=== PATIENT | female | born 1995 | race Caucasian/White ===

== ENCOUNTER 2019-02-15 20:13 | Emergency (ER) | payer OTHER ==
[~2019-02-15] VITALS: Ht 157.5 cm; Wt 60.1 kg
[~2019-02-15 20:13] MED LIST: ACET500C5 PO; BUTA1CAP38 PO; CEPH-443 PO; IBUP800T48 PO
[2019-02-15 20:21] VITALS: Ht 157.5 cm; Wt 60.1 kg
[2019-02-15] MEDS ORDERED: SODIUM CHLORIDE 0.9% 1L BAG IV* STA (20:29)
[2019-02-15] MEDS ORDERED: ACETAMINOPHEN 325 MG TAB PO STA (20:29)
[2019-02-15] MEDS ORDERED: IBUPROFEN 800 MG TAB PO ONE (20:30)
[2019-02-15] MEDS ORDERED: CEFTRIAXONE 1 GM/50 ML (PMX) 50 ML IVPB ONE (21:30)
[2019-02-15 23:00] VITALS: BP 92/55; PULSE 84; RESP 21
--- NOTE | 2019-02-15 23:18 | ERD ---
ER Documentation Chief Complaint Chief Complaint FEVER WITH ABD PAIN WITH N/V X3DAYS HPI This Is a 20-year-old female with no past medical history the presents to the emergency department complaining of 3 days of a tactile fever shaking and chills. She states that he has been having bilateral flank pain. She has felt nauseous and had one episode of nonbloody nonbilious emesis. She said a decreased appetite. She denies any recent travel. She does complain of mild frequency and urgency with no dysuria. She is sexually active with one partner and denies any abnormal urethral discharge or STD risk factors. She denies any chest pain. No shortness of breath no recent travel. She denies a headache or neck pain. The patient is on Depo-Provera but otherwise takes no other medications ROS All systems reviewed and are negative except as per history of present illness. Medications Home Meds Active Scripts Cephalexin* (Keflex*) 500 Mg Capsule, 500 MG PO QID for 10 Days, CAP Prov:CY TORO MD 02/15/19 Acetaminophen* (Tylophen*) 500 Mg Capsule, 2 CAP PO Q8H PRN for PAIN AND OR ELEVATED TEMP, #20 CAP Prov:CY TORO MD 02/15/19 Ibuprofen* (Motrin*) 800 Mg Tab, 800 MG PO Q6H PRN for PAIN AND OR ELEVATED TEM P, #30 TAB Prov:CY TORO MD 02/15/19 Allergies Allergies: Coded Allergies: No Known Allergy (Unverified , 02/15/19) PMhx/Soc Medical and Surgical Hx: pt denies Medical Hx, pt denies Surgical Hx Hx Alcohol Use: No Hx Substance Use: No Hx Tobacco Use: No Smoking Status: Never smoker Physical Exam Vitals Vital Signs Date Temp Pulse Resp B/P (MAP) Pulse Ox O2 O2 Flow FiO2 Time Delivery Rate 02/15/19 98.6 84 21 92/55 (67) 98 Room Air 23:00 02/15/19 99.5 98 16 102/54 100 Room Air 22:08 (70) 02/15/19 102.4 106 16 103/72 100 Room Air 21:19 (82) 02/15/19 Nasal 20:36 Cannula 02/15/19 103.1 143 19 116/65 98 20:21 (82) Physical Exam Constitutional:Well-developed. Well-nourished. HEENT:Normocephalic. Atraumatic.Pupils were equal round reactive to light. Moist mucous membranes.No tonsillar exudates. Neck: No nuchal rigidity. No lymphadenopathy. No posterior cervical spine tenderness or step-offs. Respiratory: Not using accessory muscles of respiration.Lungs were clear to auscultation bilaterally. No rhonchi. No rales. No wheezing. Cardiovascular: Tachycardic with regular rhythm.No murmurs. No rubs were appreciated.S1, S2 normal. Distal pulses are palpable 2+ bilaterally. GI: Abdomen was soft. Bilateral flank tenderness. Non Distended. No pulsatile abdominal masses or bruits. No rebound. No guarding. Bowel sounds were present and normal. Muscle skeletal: Full range of motion of both the upper and lower extremities bilaterally.Normal muscle tone.No assymetrical calf tenderness or swelling. Skin: No petechia, no purpura. No lesions on the palms or the soles of the feet. No maculopapular rash. NEURO: Patient was alert, awake, orientated x3.No facial droop. Gait observed and normal with no ataxia.Speech had regular rate and rhythm. No focal neurological deficits. Result Diagram: 02/15/19203402/15/192034 Results 24 hrs Laboratory Tests Test 02/15/19 20:30 02/15/19 20:35 02/15/19 20:46 Urine Color YELLOW Urine Clarity CLOUDY Urine pH 5.0 Urine Specific [place] 1.012 Urine Ketones NEGATIVE mg/dL Urine Nitrite POSITIVE mg/dL Urine Bilirubin NEGATIVE mg/dL Urine Urobilinogen NEGATIVE mg/dL Urine Leukocyte Esterase 1+ Yvrose/ul Urine Microscopic RBC 7 /HPF Urine Microscopic WBC 163 /HPF Urine Squamous Epithelial Cells FEW /HPF Urine Bacteria FEW /HPF Urine Hemoglobin 3+ mg/dL Urine Glucose NEGATIVE mg/dL Urine Total Protein 2+ mg/dl White Blood Count 10.3 10^3/ul Red Blood Count 4.28 10^6/ul Hemoglobin 13.3 g/dl Hematocrit 39.3 % Mean Corpuscular Volume 91.8 fl Mean Corpuscular Hemoglobin 31.1 pg Mean Corpuscular 33.8 g/dl Hemoglobin Concent Red Cell Distribution Width 12.7 % Platelet Count 134 10^3/UL Mean Platelet Volume 12.1 fl Immature Granulocytes % 0.200 % Neutrophils % 81.3 % Lymphocytes % 6.7 % Monocytes % 11.4 % Eosinophils % 0.1 % Basophils % 0.3 % Nucleated Red Blood Cells % 0.0 /100WBC Immature Granulocytes # 0.020 10^3/ul Neutrophils # 8.4 10^3/ul Lymphocytes # 0.7 10^3/ul Monocytes # 1.2 10^3/ul Eosinophils # 0.0 10^3/ul Basophils # 0.0 10^3/ul Nucleated Red Blood Cells # 0.0 10^3/ul Prothrombin Time 15.4 Sec Prothrombin Time Ratio 1.2 INR International 1.21 Normalized Ratio Activated Partial Thromboplast 31.5 Sec Time Sodium Level 138 mmol/L Potassium Level 3.7 mmol/L Chloride Level 103 mmol/L Carbon Dioxide Level 25 mmol/L Anion Gap 10 Blood Urea Nitrogen 8 mg/dl Creatinine 0.92 mg/dl Est Glomerular Filtrat > 60 mL/min Rate mL/min Glucose Level 123 mg/dl POC Venous Lactate 1.4 mmol/L Calcium Level 8.9 mg/dl Total Bilirubin 1.1 mg/dl Direct Bilirubin 0.00 mg/dl Indirect Bilirubin 1.1 mg/dl Aspartate Amino 20 IU/L Transf (AST/SGOT) Alanine 21 IU/L Aminotransferase (ALT/SGPT) Alkaline Phosphatase 59 IU/L Troponin I < 0.012 ng/ml Total Protein 8.1 g/dl Albumin 4.4 g/dl Globulin 3.70 g/dl Albumin/Globulin Ratio 1.18 Amylase Level 66 U/L Lipase 29 U/L POC Beta HCG, Qualitative NEGATIVE Current Medications Medications Dose Sig/Carlito Start Time Status Last (Trade) Ordered Route PRN Stop Time Admin Dose Reason Admin Sodium 1,800 ml BOLUS OVER 2 02/15/19 DC 02/15/19 Chloride HOURS STAT 20:29 20:42 (NS) IV* 02/15/19 20:37 650 mg ONCE STAT 02/15/19 DC 02/15/19 Acetaminophen PO 20:29 20:42 (Tylenol 02/15/19 20:37 Tab) Ibuprofen 800 mg ONCE ONCE 02/15/19 DC 02/15/19 (Motrin) PO 20:30 20:42 02/15/19 20:37 Ceftriaxone 50 ml @ ONCE ONCE 02/15/19 DC 02/15/19 Sodium 100 mls/hr IVPB 21:30 21:34 02/15/19 21:59 Procedures/MDM 23-year-old female that presented to the emergency department with Sirs criteria. The patient was called for a code sepsis however the lactic acid was normal and therefore at this time code sepsis was canceled. The patient was placed in a bus monitor continuous pulse oximetry and IV access was established by nursing staff. The patient was given a 30 cc/kg bolus of normal saline. The patient no leukocytosis or severe electrolyte abnormalities. Physical exam findings did not suggest meningitis. The patient did have a urinary tract infection consistent with pyelonephritis. Chest radiograph showed no evidence of pneumonia. The patient was given IV ceftriaxone in the emergency department. Fever was resolved with antipyretics. The patient was able to tolerate oral intake. 12 Lead EKG tracing ordered and reviewed by myself showed: Sinus tachycardia 113 bpm and no arrhythmia. HI interval normal. QRS duration normal. No ST segment elevation No ST segment depression. No changes consistent with acute ischemia. Critical Care: Time: 40 minutes Treatments/Evaluations: Close monitoring and treatment of unstable vital signs, cardiorespiratory, and neurologic status, while maintaining tight balance of fluid, respiratory, and cardiac interventions. Time does not include performing any of the above billable procedures. Departure Diagnosis: Primary Impression: Pyelonephritis Condition: Fair Patient Instructions: Pyelonephritis, Female (Adult) CY TORO MD Feb 15, 2019 23:18
== END 2019-02-15 23:09 | disposition home or self-care (01) ==
LOC: E/R 20:13
DX: N12 Tubulo-interstitial nephritis, not specified as acute or chronic (principal)
CPT/HCPCS: 36415; 71045; 80053; 81001; 81025; 82150; 83605; 83690; 84484; 85025; 85610; 85730; 87040; 87086; 93005; 96374; J0696; J7030; Z7502; Z7610

== ENCOUNTER 2019-02-18 21:40 | Inpatient (IN) | payer OTHER ==
[~2019-02-18] VITALS: Ht 160 cm; Wt 64.0 kg
[2019-02-18] MEDS ORDERED: SODIUM CHLORIDE 0.9% 1L BAG IV* STA (22:27)
[2019-02-18] MEDS ORDERED: ACETAMINOPHEN 325 MG TAB PO STA (22:27)
[2019-02-19] MEDS ORDERED: KETOROLAC 30 MG INJ IV STA (02:51)
--- NOTE | 2019-02-19 03:56 | ERD ---
ER Documentation Chief Complaint Chief Complaint low grade fever, TATUM, neck pain/stiffness x2 days, on abx for pyelo HPI This is a very pleasant 23-year-old female with low-grade fever headache body aches and abdominal pain and flank pain for the past 2 days. Recently diagnosed with urinary tract infection ROS All systems reviewed and are negative except as per history of present illness. Medications Home Meds Active Scripts Cephalexin* (Keflex*) 500 Mg Capsule, 500 MG PO QID for 10 Days, CAP Prov:CY TORO MD 02/15/19 Acetaminophen* (Tylophen*) 500 Mg Capsule, 2 CAP PO Q8H PRN for PAIN AND OR ELEVATED TEMP, #20 CAP Prov:CY TORO MD 02/15/19 Ibuprofen* (Motrin*) 800 Mg Tab, 800 MG PO Q6H PRN for PAIN AND OR ELEVATED TEMP, #30 TAB Prov:CY TORO MD 02/15/19 Allergies Allergies: Coded Allergies: No Known Allergy (Unverified , 02/19/19) PMhx/Soc Medical and Surgical Hx: pt denies Medical Hx History of Surgery: Yes (ANKLE SURGERY) Anesthesia Reaction: No Hx Alcohol Use: No Hx Substance Use: No Hx Tobacco Use: No Smoking Status: Never smoker Physical Exam Vitals Vital Signs Date Temp Pulse Resp B/P (MAP) Pulse Ox O2 O2 Flow FiO2 Time Delivery Rate 02/19/19 61 18 109/66 100 Room Air 02:00 (80) 02/19/19 76 21 116/72 100 Room Air 00:00 (87) 02/18/19 88 18 113/70 100 Room Air 23:30 (84) 02/18/19 100.5 22:40 02/18/19 100.5 85 16 121/78 99 21:43 (92) Physical Exam Const: No acute distress Head: Atraumatic Eyes: Normal Conjunctiva ENT: Normal External Ears, Nose and Mouth. Neck: Full range of motion. No meningismus. Resp: Clear to auscultation bilaterally Cardio: Regular rate and rhythm, no murmurs Abd: Soft, non tender, non distended. Normal bowel sounds Skin: No petechiae or rashes Back: No midline or flank tenderness Ext: No cyanosis, or edema Neur: Awake and alert Psych: Normal Mood and Affect Result Diagram: 02/18/19220102/18/192201 Results 24 hrs Laboratory Tests Test 02/18/19 22:02 02/18/19 22:54 02/19/19 01:29 02/19/19 03:02 White Blood Count 6.2 10^3/ul Red Blood Count 4.07 10^6/ul Hemoglobin 12.3 g/dl Hematocrit 37.1 % Mean Corpuscular 91.2 fl Volume Mean Corpuscular 30.2 pg Hemoglobin Mean Corpuscular 33.2 g/dl Hemoglobin Concen t Red Cell 12.8 % Distribution Width Platelet Count 199 10^3/UL Mean Platelet 11.9 fl Volume Immature 0.500 % Granulocytes % Neutrophils % % Segmented 54 % Neutrophils % (Manual) Band Neutrophils 7 % % (Manual) Lymphocytes % % Lymphocytes % 25 % (Manual) Reactive 2 % Lymphocytes % (Manual) Monocytes % % Monocytes % 11 % (Manual) Eosinophils % % Eosinophils % 1 % (Manual) Basophils % % Nucleated Red 0.0 /100WBC Blood Cells % Immature 0.030 10^3/ul Granulocytes # Neutrophils # 10^3/ul Neutrophils # 3.4 10^3/ul (Manual) Band Neutrophils 0.4 10^3/ul # Lymphocytes 1.5 10^3/ul (Manual) Lymphocytes # 10^3/ul Reactive 0.1 10^3/ul Lymphocytes # Monocytes # 10^3/ul Monocytes # 0.6 10^3/ul (Manual) Eosinophils # 10^3/ul Basophils # 10^3/ul Nucleated Red 10^3/ul Blood Cells # Platelet Estimate NORMAL Giant Platelets 1 % Polychromasia 2+ Anisocytosis 1+ Microcytosis 1+ Prothrombin Time 13.1 Sec Prothrombin Time 1.0 Ratio INR International 0.98 Normalized Ratio Activated 31.2 Sec Partial Thrombopl ast Time Sodium Level 142 mmol/L Potassium Level 3.9 mmol/L Chloride Level 101 mmol/L Carbon Dioxide 31 mmol/L Level Anion Gap 10 Blood Urea 17 mg/dl Nitrogen Creatinine 0.90 mg/dl Est Glomerular > 60 mL/min Filtrat Rate mL/min Glucose Level 126 mg/dl Calcium Level 9.3 mg/dl Total Bilirubin 0.2 mg/dl Direct Bilirubin 0.00 mg/dl Indirect 0.2 mg/dl Bilirubin Aspartate Amino 27 IU/L Transf (AST/SGOT) Alanine 34 IU/L Aminotransferase (ALT/SGPT) Alkaline 62 IU/L Phosphatase Troponin I < 0.012 ng/ml Total Protein 7.5 g/dl Albumin 3.8 g/dl Globulin 3.70 g/dl Albumin/Globulin 1.02 Ratio Urine Color COLORLESS Urine Clarity CLEAR Urine pH 7.0 Urine Specific 1.005 [place] Urine Ketones NEGATIVE mg/dL Urine Nitrite NEGATIVE mg/dL Urine Bilirubin NEGATIVE mg/dL Urine NEGATIVE mg/dL Urobilinogen Urine Leukocyte NEGATIVE Yvrose/ul Esterase Urine Microscopic 3 /HPF RBC Urine Microscopic 1 /HPF WBC Urine Hemoglobin 2+ mg/dL Urine Glucose NEGATIVE mg/dL Urine Total NEGATIVE mg/dl Protein Lactic Acid Level 0.8 mmol/L 0.8 mmol/L Current Medications Medications Dose Sig/Carlito Start Time Status Last (Trade) Ordered Route PRN Stop Time Admin Dose Reason Admin Sodium 1,850 ml BOLUS OVER 2 02/18/19 DC 02/18/19 Chloride HOURS STAT 22:27 22:40 (NS) IV* 02/18/19 22:28 650 mg ONCE STAT 02/18/19 DC 02/18/19 Acetaminophen PO 22:27 22:40 (Tylenol 02/18/19 22:28 Tab) Ketorolac 30 mg ONCE STAT 02/19/19 DC 02/19/19 Tromethamine IV 02:51 02:56 (Toradol) 02/19/19 02:52 Vancomycin 250 ml @ ONCE ONCE 02/19/19 HCl 125 mls/hr IVPB 04:00 02/19/19 05:59 150 ml @ ONCE ONCE 02/19/19 Levofloxacin/ 100 mls/hr IVPB 04:00 Dextrose 02/19/19 05:29 Procedures/MDM This is a very pleasant 23-year-old female comes in with complaints of fevers chills and body aches. Reviewing her medical record, patient had a positive blood culture. This is likely source of her fevers and chills. She is been started on broad-spectrum antibiotics that tend to cover her sensitivities. Patient will be admitted for further evaluation and management. EKG: Rate/Rhythm: [Normal Sinus Rhythm] QRS, ST, T-waves: [No changes consistent w/ acute ischemia] Impression: [No evidence of ischemia or arrhythmia] Chest X-ray 1V Interpreted by me: Soft Tissue: No acute abnormalities Bones: No acute abnormalities Mediastinum/Cardiac Silhouette/Lungs: [No acute abnormalities] Departure Diagnosis: Primary Impression: Pyelonephritis Condition: Serious LUCIEN WILKS Feb 19, 2019 03:56
[2019-02-19] MEDS ORDERED: LEVOFLOXACIN 750MG/D5W (PMX) 150 ML IVPB ONE (04:00)
[2019-02-19] MEDS ORDERED: VANCOMYCIN 1 GM (PMX) 250 ML IVPB ONE (04:00)
[2019-02-19] MEDS ORDERED: ACETAMINOPHEN 325 MG TAB PO PRN (05:00)
[2019-02-19] MEDS ORDERED: ONDANSETRON 4 MG INJ IV PRN ×2 (05:00→06:00)
--- NOTE | 2019-02-19 05:53 | HP ---
Date/Time of Note Date/Time of Note DATE: 02/19/19 TIME: 05:49 Assessment/Plan VTE Prophylaxis SCD applied (from Nsg): Yes Pharmacological prophylaxis: NA/contraindicated Pharm contraindication: other (Awaiting lumbar puncture) Lines/Catheters IV Catheter Type (from Nrsg): Saline Lock Assessment/Plan Assessment/Plan 1. Headache and neck pain: Rule out meningitis -Patient also presented with temperature of 100.5 -She was diagnosed with pyelonephritis here 4 days ago and has been on antibiotic -will obtain head CT -LP to rule out meningitis -IV antibiotic -Patient with E. coli bacteremia, with blood draw and on 02/15/2019 2. Pyelonephritis: Diagnosed 4 days ago here at [facility] -UA now negative -Continue IV antibiotic, IV fluid -Follow-up culture results 3. E. coli bacteremia: On lab drawn 02/15 -IV antibiotic -Repeat blood culture at a later time Result Diagram: 02/18/19 2202 02/18/19 2202 Results 24hrs Laboratory Tests Test 02/18/19 22:02 02/18/19 22:54 02/19/19 01:29 02/19/19 03:02 White Blood Count 6.2 # Red Blood Count 4.07 L Hemoglobin 12.3 Hematocrit 37.1 Mean Corpuscular 91.2 Volume Mean Corpuscular 30.2 Hemoglobin Mean Corpuscular 33.2 Hemoglobin Concent Red Cell 12.8 Distribution Width Platelet Count 199 # Mean Platelet Volume 11.9 H Immature 0.500 H Granulocytes % Neutrophils % Segmented 54 Neutrophils % (Manual) Band Neutrophils % 7 H (Manual) Lymphocytes % Lymphocytes % 25 (Manual) Reactive Lymphocytes 2 H % (Manual) Monocytes % Monocytes % (Manual) 11 Eosinophils % Eosinophils % 1 (Manual) Basophils % Nucleated Red Blood 0.0 Cells % Immature 0.030 Granulocytes # Neutrophils # Neutrophils # 3.4 (Manual) Band Neutrophils # 0.4 Lymphocytes (Manual) 1.5 Lymphocytes # Reactive Lymphocytes 0.1 H # Monocytes # Monocytes # (Manual) 0.6 Eosinophils # Basophils # Nucleated Red Blood Cells # Platelet Estimate NORMAL Giant Platelets 1 H Polychromasia 2+ Anisocytosis 1+ Microcytosis 1+ Prothrombin Time 13.1 Prothrombin Time 1.0 Ratio INR International 0.98 Normalized Ratio Activated 31.2 Partial Thromboplast Time Sodium Level 142 Potassium Level 3.9 Chloride Level 101 Carbon Dioxide Level 31 Anion Gap 10 Blood Urea Nitrogen 17 Creatinine 0.90 Est Glomerular > 60 Filtrat Rate mL/min Glucose Level 126 Calcium Level 9.3 Total Bilirubin 0.2 Direct Bilirubin 0.00 Indirect Bilirubin 0.2 Aspartate Amino 27 Transf (AST/SGOT) Alanine 34 Aminotransferase (AL T/SGPT) Alkaline Phosphatase 62 Troponin I < 0.012 Total Protein 7.5 Albumin 3.8 Globulin 3.70 H Albumin/Globulin 1.02 Ratio Urine Color COLORLESS Urine Clarity CLEAR Urine pH 7.0 Urine Specific 1.005 [place] Urine Ketones NEGATIVE Urine Nitrite NEGATIVE Urine Bilirubin NEGATIVE Urine Urobilinogen NEGATIVE Urine Leukocyte NEGATIVE Esterase Urine Microscopic 3 RBC Urine Microscopic 1 WBC Urine Hemoglobin 2+ H Urine Glucose NEGATIVE Urine Total Protein NEGATIVE Lactic Acid Level 0.8 0.8 HPI/ROS Admit Date/Time Admit Date/Time Hx of Present Illness Patient is a 23-year-old female with no significant past medical history who presents the ER complaining of fever, headache, neck pain. She was seen in our ER 4 days ago for fever/chills and bilateral flank pain. At that time UA was positive. She was diagnosed with pyelonephritis and was discharged with antibiotic. She said for the past 3 days or so, she has been having headache mostly located in the frontal/forehead area but somehow diffuse. Also reported neck pain and stiffness. She said moving her head from side to side had been difficult. When she presented to the ER this time, she had a temperature of 100.5. UA negative. Basic labs within acceptable range. CT abdomen/pelvis shows left adnexal teratoma measuring 4.2 x 3.3 cm. Blood culture that was drawn 4 days ago shows E. coli, resistant to Bactrim. PMH/Family/Social Past Medical History Medical History: other (See HPI) Medications Current Medications Vancomycin HCl 250 ml @ 125 mls/hr ONCE ONCE IVPB Last administered on 02/19/19at 05:30; Admin Dose 125 MLS/HR; Start 02/19/19 at 04:00; Stop 02/19/19 at 05:59 Ondansetron HCl (Zofran Inj) 4 mg BRIDGE ORDER PRN IV NAUSEA/VOMITING; Start at 05:00; Stop 02/20/19 at 04:59 Acetaminophen (Tylenol Tab) 650 mg ER BRIDGE PRN PO .MILD PAIN 1-3 OR TEMP; Start 02/19/19 at 05:00; Stop 02/20/19 at 04:59 Coded Allergies: No Known Allergy (Unverified , 02/19/19) Past Surgical History Past Surgical Hx: other (See HPI) Family History Significant Family History: no pertinent family hx Social History Alcohol Use: none Smoking Status: Never smoker Drug Use: none Exam/Review of Systems Vital Signs Vitals Vital Signs Date Temp Pulse Resp B/P (MAP) Pulse Ox O2 O2 Flow FiO2 Time Delivery Rate 02/19/19 62 20 117/62 100 Room Air 05:30 (80) 02/18/19 100.5 22:40 Exam Constitutional: alert, oriented, well developed Head: normocephalic, atraumatic Eyes: EOMI, PERRL Respiratory: clear to auscultation, normal air movement Cardiovascular: regular rate and rhythm, nl pulses Gastrointestinal: soft, non-tender Extremities: normal pulses LUCIEN ROCHA MD Feb 19, 2019 05:53
[2019-02-19] MEDS ORDERED: VANCOMYCIN IV PER PHARMACY XX SCH (06:00)
[2019-02-19] MEDS ORDERED: NACL 0.9% 3 ML SYG IV SCH (06:00)
[2019-02-19] MEDS ORDERED: ALBUTEROL/IPRATROPIUM (NEB) 3 ML AMP HHN PRN (06:00)
[2019-02-19 07:44] VITALS: BP 97/58; PULSE 65; RESP 16
[2019-02-19] MEDS ORDERED: CEFTRIAXONE 1 GM/50 ML (PMX) 50 ML IVPB SCH ×2 (09:00→13:00)
[2019-02-19] MEDS: SOD CHLORIDE 0.9% 1,000 ML IV SCH ×3 (09:35→21:15)
[2019-02-19 10:01] VITALS: Ht 160 cm; Wt 64.0 kg
[2019-02-19 10:12] VITALS: BP 99/67; PULSE 74; RESP 21
[2019-02-19] MEDS: ACETAMINOPHEN 325 MG TAB PO PRN ×2 (10:22→22:46)
[2019-02-19] MEDS ORDERED: LIDOCAINE 1% (MPF) 5 ML VIAL ONE (11:56)
--- NOTE | 2019-02-19 12:17 | PN ---
Date/Time of Note Date/Time of Note DATE: 02/19/19 TIME: 12:15 Assessment/Plan VTE Prophylaxis Risk score (from Ns)>0 risk: 0 SCD applied (from [facility] [place]): Yes Pharmacological prophylaxis: NA/contraindicated Pharm contraindication: low risk/ambulating Lines/Catheters IV Catheter Type (from [facility]): Peripheral IV Assessment/Plan Hospital Course 1. Headache and neck pain: Rule out meningitis -Patient also presented with temperature of 100.5 -She was diagnosed with pyelonephritis here 4 days ago and has been on antibiotic -CT head is normal -LP to rule out meningitis -IV antibiotic -Patient with E. coli bacteremia, with blood draw and on 02/15/2019 -Neurology and ID consultations obtained 2. Pyelonephritis: Diagnosed 4 days ago here at [facility] -UA now negative -Continue IV antibiotic, IV fluid -Follow-up culture results 3. E. coli bacteremia: On lab drawn 02/15 -IV antibiotic -Repeat blood culture per ID Prophylaxis: SCDs DC planning: Not stable DC Result Diagram: 02/18/192 02/18/192 Results 24hrs Laboratory Tests Test 02/18/19 22:02 02/18/19 22:54 02/19/19 01:29 02/19/19 03:02 White Blood Count 6.2 # Red Blood Count 4.07 L Hemoglobin 12.3 Hematocrit 37.1 Mean Corpuscular 91.2 Volume Mean Corpuscular 30.2 Hemoglobin Mean Corpuscular 33.2 Hemoglobin Concent Red Cell 12.8 Distribution Width Platelet Count 199 # Mean Platelet Volume 11.9 H Immature 0.500 H Granulocytes % Neutrophils % Segmented 54 Neutrophils % (Manual) Band Neutrophils % 7 H (Manual) Lymphocytes % Lymphocytes % 25 (Manual) Reactive Lymphocytes 2 H % (Manual) Monocytes % Monocytes % (Manual) 11 Eosinophils % Eosinophils % 1 (Manual) Basophils % Nucleated Red Blood 0.0 Cells % Immature 0.030 Granulocytes # Neutrophils # Neutrophils # 3.4 (Manual) Band Neutrophils # 0.4 Lymphocytes (Manual) 1.5 Lymphocytes # Reactive Lymphocytes 0.1 H # Monocytes # Monocytes # (Manual) 0.6 Eosinophils # Basophils # Nucleated Red Blood Cells # Platelet Estimate NORMAL Giant Platelets 1 H Polychromasia 2+ Anisocytosis 1+ Microcytosis 1+ Prothrombin Time 13.1 Prothrombin Time 1.0 Ratio INR International 0.98 Normalized Ratio Activated 31.2 Partial Thromboplast Time Sodium Level 142 Potassium Level 3.9 Chloride Level 101 Carbon Dioxide Level 31 Anion Gap 10 Blood Urea Nitrogen 17 Creatinine 0.90 Est Glomerular > 60 Filtrat Rate mL/min Glucose Level 126 Calcium Level 9.3 Total Bilirubin 0.2 Direct Bilirubin 0.00 Indirect Bilirubin 0.2 Aspartate Amino 27 Transf (AST/SGOT) Alanine 34 Aminotransferase (AL T/SGPT) Alkaline Phosphatase 62 Troponin I < 0.012 Total Protein 7.5 Albumin 3.8 Globulin 3.70 H Albumin/Globulin 1.02 Ratio Urine Color COLORLESS Urine Clarity CLEAR Urine pH 7.0 Urine Specific 1.005 [place] Urine Ketones NEGATIVE Urine Nitrite NEGATIVE Urine Bilirubin NEGATIVE Urine Urobilinogen NEGATIVE Urine Leukocyte NEGATIVE Esterase Urine Microscopic 3 RBC Urine Microscopic 1 WBC Urine Hemoglobin 2+ H Urine Glucose NEGATIVE Urine Total Protein NEGATIVE Lactic Acid Level 0.8 0.8 Subjective 24 Hr Interval Summary Neurologic: headache Exam/Review of Systems Exam Vitals Vital Signs Date Temp Pulse Resp B/P (MAP) Pulse Ox O2 O2 Flow FiO2 Time Delivery Rate 02/19/19 98.0 10:22 02/19/19 74 21 99/67 (78) 98 Room Air 10:12 Constitutional: alert, oriented Respiratory: clear to auscultation Cardiovascular: regular rate and rhythm Gastrointestinal: soft; No distended Musculoskeletal: nl extremities to inspection Results Results 24hrs Laboratory Tests Test 02/18/19 22:02 02/18/19 22:54 02/19/19 01:29 02/19/19 03:02 White Blood Count 6.2 # Red Blood Count 4.07 L Hemoglobin 12.3 Hematocrit 37.1 Mean Corpuscular 91.2 Volume Mean Corpuscular 30.2 Hemoglobin Mean Corpuscular 33.2 Hemoglobin Concent Red Cell 12.8 Distribution Width Platelet Count 199 # Mean Platelet Volume 11.9 H Immature 0.500 H Granulocytes % Neutrophils % Segmented 54 Neutrophils % (Manual) Band Neutrophils % 7 H (Manual) Lymphocytes % Lymphocytes % 25 (Manual) Reactive Lymphocytes 2 H % (Manual) Monocytes % Monocytes % (Manual) 11 Eosinophils % Eosinophils % 1 (Manual) Basophils % Nucleated Red Blood 0.0 Cells % Immature 0.030 Granulocytes # Neutrophils # Neutrophils # 3.4 (Manual) Band Neutrophils # 0.4 Lymphocytes (Manual) 1.5 Lymphocytes # Reactive Lymphocytes 0.1 H # Monocytes # Monocytes # (Manual) 0.6 Eosinophils # Basophils # Nucleated Red Blood Cells # Platelet Estimate NORMAL Giant Platelets 1 H Polychromasia 2+ Anisocytosis 1+ Microcytosis 1+ Prothrombin Time 13.1 Prothrombin Time 1.0 Ratio INR International 0.98 Normalized Ratio Activated 31.2 Partial Thromboplast Time Sodium Level 142 Potassium Level 3.9 Chloride Level 101 Carbon Dioxide Level 31 Anion Gap 10 Blood Urea Nitrogen 17 Creatinine 0.90 Est Glomerular > 60 Filtrat Rate mL/min Glucose Level 126 Calcium Level 9.3 Total Bilirubin 0.2 Direct Bilirubin 0.00 Indirect Bilirubin 0.2 Aspartate Amino 27 Transf (AST/SGOT) Alanine 34 Aminotransferase (AL T/SGPT) Alkaline Phosphatase 62 Troponin I < 0.012 Total Protein 7.5 Albumin 3.8 Globulin 3.70 H Albumin/Globulin 1.02 Ratio Urine Color COLORLESS Urine Clarity CLEAR Urine pH 7.0 Urine Specific 1.005 [place] Urine Ketones NEGATIVE Urine Nitrite NEGATIVE Urine Bilirubin NEGATIVE Urine Urobilinogen NEGATIVE Urine Leukocyte NEGATIVE Esterase Urine Microscopic 3 RBC Urine Microscopic 1 WBC Urine Hemoglobin 2+ H Urine Glucose NEGATIVE Urine Total Protein NEGATIVE Lactic Acid Level 0.8 0.8 Medications Medication Current Medications Sodium Chloride 1,000 ml @ 125 mls/hr Q8H IV Last administered on 02/19/19at 09:35; Admin Dose 125 MLS/HR; Start 02/19/19 at 05:53 IV Flush (NS 3 ml) 3 ml PER PROTOCOL IV ; Start 02/19/19 at 06:00 Ondansetron HCl (Zofran Inj) 4 mg Q6H PRN IV NAUSEA/VOMITING Last administered on 02/19/19at 10:22; Admin Dose 4 MG; Start 02/19/19 at 06:00 Acetaminophen (Tylenol Tab) 650 mg Q6H PRN PO .PAIN 1-3 OR TEMP Last administered on 02/19/19at 10:22; Admin Dose 650 MG; Start 02/19/19 at 06:00 Albuterol/ Ipratropium (Duoneb) 3 ml Q2H RESP THERAPY PRN HHN SHORTNESS OF BREATH; Start 02/19/19 at 06:00 Vancomycin HCl (Vanco Iv Per Pharmacy) VANCOMYCIN PER PHARMACY PER PROTOCOL XX ; Start 02/19/19 at 06:00 Ceftriaxone Sodium 50 ml @ 100 mls/hr DAILY IVPB Last administered on 02/19/19at 09:35; Admin Dose 100 MLS/HR; Start 02/19/19 at 09:00 Vancomycin HCl 250 ml @ 125 mls/hr Q12H IVPB ; Start 02/19/19 at 17:30 Miscellaneous Information (*Rx Drug Level Order Reminder*) VANCOMYCIN TROUGH LEVEL 1630 ONCE XX ; Start 02/20/19 at 16:30; Stop 02/20/19 at 16:31 PARKER VEGA Feb 19, 2019 12:17
--- NOTE | 2019-02-19 13:30 | CONSI ---
Assessment/Plan Assessment/Plan Assessment/Plan (Recall) 23 F who presents for evaluation of headache, fevers, body aches and neck stiffness... On neurologic examination, she is mentating normally, w/o meningismus or focal signs..which is reassuring.. Meningitis is, though, not entirely excluded.. Head CT is unrevealing. Recent BCxs were notable for e coli in 1/2 bottles...which raises suspicion for contamination... P: Agree w/ LP for CSF evaluation Add serum West Nile and l Influenza screen.. Other management and supportive care per primary Will follow Consultation Date/Type/Reason Admit Date/Time Type of Consult Neurology Reason for Consultation headache fevers Requesting Provider: PARKER VEGA Date/Time of Note DATE: 02/19/19 TIME: 13:25 Hx of Present Illness Patient is a 23-year-old female with no significant past medical history who presents the ER complaining of fever, headache, neck pain. She was seen in our ER 4 days ago for fever/chills and bilateral flank pain. At that time UA was positive. She was diagnosed with pyelonephritis and was discharged with antibiotic. She said for the past 3 days or so, she has been having headache mostly located in the frontal/forehead area but somehow diffuse. Also reported neck pain and stiffness. She said moving her head from side to side had been difficult. When she presented to the ER this time, she had a temperature of 100.5. UA n egative. Basic labs within acceptable range. CT abdomen/pelvis shows left adnexal teratoma measuring 4.2 x 3.3 cm. Blood culture that was drawn 4 days ago shows E. coli, resistant to Bactrim. per HPI Objective Exam Vitals Vital Signs Date Temp Pulse Resp B/P (MAP) Pulse Ox O2 O2 Flow FiO2 Time Delivery Rate 02/19/19 98.0 10:22 02/19/19 74 21 99/67 (78) 98 Room Air 10:12 Exam PE: Gen Appearance: No Apparent Distress HEENT: Normocephalic Cardiovascular: Regular rate Lungs: Clear bilaterally Abdomen: Soft Extremities: Dry NE: The patient was alert and oriented, able to spell WORLD backwards, and able to recall all three words after a five minute delay. Language was normal. Fund of knowledge was normal. Pupils were equal and reactive to light. There was no afferent pupillary defect. Visual ramos were normal. Funduscopic examination was limited. Extra-ocular movements were full. Ptosis was absent. There was no nystagmus. Facial sensation was normal. Face was symmetric with normal strength. Hearing was intact. Palate movements were normal. Neck strength was normal. There was normal tongue bulk and speed of movement. Tone was normal. Muscle bulk was normal. I did not see fasciculations. Arms and legs were strong. Vibration sensation was normal. Temperature and pinprick sensation was normal. Rapid alternating movements were normal. There was no dysmetria. There was no i ntention tremor. Gait was deferred due to bedrest. Arm and leg reflexes were 2+ and symmetric. Manuel's sign was absent. Plantar responses were flexor. Results Result Diagram: 02/18/19220102/18/19 220 Results 24hrs Laboratory Tests Test 02/18/19 22:02 02/18/19 22:54 02/19/19 01:29 02/19/19 03:02 White Blood Count 6.2 # Red Blood Count 4.07 L Hemoglobin 12.3 Hematocrit 37.1 Mean Corpuscular 91.2 Volume Mean Corpuscular 30.2 Hemoglobin Mean Corpuscular 33.2 Hemoglobin Concent Red Cell 12.8 Distribution Width Platelet Count 199 # Mean Platelet Volume 11.9 H Immature 0.500 H Granulocytes % Neutrophils % Segmented 54 Neutrophils % (Manual) Band Neutrophils % 7 H (Manual) Lymphocytes % Lymphocytes % 25 (Manual) Reactive Lymphocytes 2 H % (Manual) Monocytes % Monocytes % (Manual) 11 Eosinophils % Eosinophils % 1 (Manual) Basophils % Nucleated Red Blood 0.0 Cells % Immature 0.030 Granulocytes # Neutrophils # Neutrophils # 3.4 (Manual) Band Neutrophils # 0.4 Lymphocytes (Manual) 1.5 Lymphocytes # Reactive Lymphocytes 0.1 H # Monocytes # Monocytes # (Manual) 0.6 Eosinophils # Basophils # Nucleated Red Blood Cells # Platelet Estimate NORMAL Giant Platelets 1 H Polychromasia 2+ Anisocytosis 1+ Microcytosis 1+ Prothrombin Time 13.1 Prothrombin Time 1.0 Ratio INR International 0.98 Normalized Ratio Activated 31.2 Partial Thromboplast Time Sodium Level 142 Potassium Level 3.9 Chloride Level 101 Carbon Dioxide Level 31 Anion Gap 10 Blood Urea Nitrogen 17 Creatinine 0.90 Est Glomerular > 60 Filtrat Rate mL/min Glucose Level 126 Calcium Level 9.3 Total Bilirubin 0.2 Direct Bilirubin 0.00 Indirect Bilirubin 0.2 Aspartate Amino 27 Transf (AST/SGOT) Alanine 34 Aminotransferase (AL T/SGPT) Alkaline Phosphatase 62 Troponin I < 0.012 Total Protein 7.5 Albumin 3.8 Globulin 3.70 H Albumin/Globulin 1.02 Ratio Urine Color COLORLESS Urine Clarity CLEAR Urine pH 7.0 Urine Specific 1.005 [place] Urine Ketones NEGATIVE Urine Nitrite NEGATIVE Urine Bilirubin NEGATIVE Urine Urobilinogen NEGATIVE Urine Leukocyte NEGATIVE Esterase Urine Microscopic 3 RBC Urine Microscopic 1 WBC Urine Hemoglobin 2+ H Urine Glucose NEGATIVE Urine Total Protein NEGATIVE Lactic Acid Level 0.8 0.8 Past Medical History Medical History: other (See HPI) Home Meds Active Scripts Cephalexin* (Keflex*) 500 Mg Capsule, 500 MG PO QID for 10 Days, CAP Prov:CY TORO MD 02/15/19 Acetaminophen* (Tylophen*) 500 Mg Capsule, 2 CAP PO Q8H PRN for PAIN AND OR ELEVATED TEMP, #20 CAP Prov:CY TORO MD 02/15/19 Ibuprofen* (Motrin*) 800 Mg Tab, 800 MG PO Q6H PRN for PAIN AND OR ELEVATED TEMP, #30 TAB Prov:CY TORO MD 02/15/19 Medications Current Medications Sodium Chloride 1,000 ml @ 125 mls/hr Q8H IV Last administered on 02/19/19at 09:35; Admin Dose 125 MLS/HR; Start 02/19/19 at 05:53 IV Flush (NS 3 ml) 3 ml PER PROTOCOL IV ; Start 02/19/19 at 06:00 Ondansetron HCl (Zofran Inj) 4 mg Q6H PRN IV NAUSEA/VOMITING Last administered on 02/19/19at 10:22; Admin Dose 4 MG; Start 02/19/19 at 06:00 Acetaminophen (Tylenol Tab) 650 mg Q6H PRN PO .PAIN 1-3 OR TEMP Last administered on 02/19/19at 10:22; Admin Dose 650 MG; Start 02/19/19 at 06:00 Albuterol/ Ipratropium (Duoneb) 3 ml Q2H RESP THERAPY PRN HHN SHORTNESS OF BREATH; Start 02/19/19 at 06:00 Vancomycin HCl (Vanco Iv Per Pharmacy) VANCOMYCIN PER PHARMACY PER PROTOCOL XX ; Start 02/19/19 at 06:00 Vancomycin HCl 250 ml @ 125 mls/hr Q12H IVPB ; Start 02/19/19 at 17:30 Miscellaneous Information (*Rx Drug Level Order Reminder*) VANCOMYCIN TROUGH LEV EL 1630 ONCE XX ; Start 02/20/19 at 16:30; Stop 02/20/19 at 16:31 Ceftriaxone Sodium 50 ml @ 100 mls/hr ONCE IVPB ; Start 02/19/19 at 13:00; Stop 02/19/19 at 17:00 Ceftriaxone Sodium 50 ml @ 100 mls/hr Q12H IVPB ; Start 02/19/19 at 21:00 Allergies: Coded Allergies: No Known Allergy (Unverified , 02/19/19) Past Surgical History Past Surgical Hx: other (See HPI) Social History Alcohol Use: none Smoking Status: Never smoker Drug Use: none JAMES SOSA Feb 19, 2019 13:30
[2019-02-19 14:14] VITALS: BP 101/60; PULSE 56; RESP 16
[2019-02-19] MEDS: VANCOMYCIN 1 GM 250 ML IVPB SCH (16:36)
--- NOTE | 2019-02-19 18:54 | CONS ---
DATE OF ADMISSION: 02/19/2019 DATE OF CONSULTATION: 02/19/2019 TYPE OF CONSULTATION: Infectious disease. REASON FOR CONSULTATION: Antibiotic management. HISTORY OF PRESENT ILLNESS: Hannah Krueger is a 23-year-old female, very pleasant, who comes in with l ow grade fever, headaches, neck stiffness of 2 days and on antibiotics for pyelonephritis. She is cu rrently on Keflex. PAST SURGICAL HISTORY: Ankle surgery. FAMILY HISTORY: Noncontributory. SOCIAL HISTORY: She does not smoke, drink or abuse drugs. ALLERGIES: NONE TO PENICILLIN, SULFA OR FOODS. MEDICATIONS: Per chart. REVIEW OF SYSTEMS: As per HPI. PHYSICAL EXAMINATION: VITAL SIGNS: T-max 100.5, pulse of 85, respirations 16, normal blood pressure. SKIN: Without generalized rash. HEENT: Within normal limits. NECK: Supple. LYMPH NODES: None palpable. CHEST: Decreased breath sounds at the bases. HEART: Without murmur or gallop. ABDOMEN: Soft, nontender, without organosplenomegaly or masses. EXTREMITIES: Without cyanosis, clubbing, or edema. RECTAL AND GENITAL: Deferred. NEUROLOGIC: No focal neurological abnormality. ANCILLARY LABORATORY DATA: White count on admission was 6.2 with 54% neutrophils, 7% bands, H and H 12.3 and 37.1, platelet count 199,000. BUN and creatinine 17/0.90, glucose of 126. Urine was negati ve for leukocyte esterase and nitrites. IMPRESSION AND PLAN: As noted, the patient came in with fever, chills, body aches. She has been on broad spectrum antibiotics for pyelonephritis. Her chest x-ray showed no evidence for acute cardiopu lmonary disease. CT scan of the abdomen and pelvis, left adnexal teratoma measuring 4.2 x 3.3 cm. N ormal appendix, no urinary tract calculus or hydronephrosis, otherwise unremarkable noncontrast CT of the pelvis. CT of the brain, no acute intracranial abnormalities. Patient was started on vancomyci n and ceftriaxone since she was febrile. Blood cultures are pending. Repeat urine is pending. Stoo l for culture is pending. We will continue her on current therapy. I will dictate my findings to [facility] hospitalists. Dictated By: AMANDA PARHAM MD, JD/ALEJANDRO Conf#: [id number] [facility]#: [id number] CC: LUCIEN ROCHA MD;*EndCC*
[2019-02-19 20:00] VITALS: BP 95/66; PULSE 60; RESP 19
[2019-02-19] MEDS: CEFTRIAXONE 2 GM/NS 50 ML IVPB SCH (21:08)
[2019-02-20] MEDS: SOD CHLORIDE 0.9% 1,000 ML IV SCH ×3 (01:43→13:53)
[2019-02-20 02:00] VITALS: BP 90/56; PULSE 65; RESP 19
[2019-02-20] MEDS: VANCOMYCIN 1 GM 250 ML IVPB SCH (05:36)
[2019-02-20 08:00] VITALS: BP 93/49; PULSE 71; RESP 17
[2019-02-20] MEDS: ACETAMINOPHEN 325 MG TAB PO PRN (08:13)
[2019-02-20] MEDS: CEFTRIAXONE 2 GM/NS 50 ML IVPB SCH (08:13)
--- NOTE | 2019-02-20 10:27 | PDOCDIS ---
Discharge Instructions CONDITION [id number] Patient Condition: [id number] Good HOME CARE INSTRUCTIONS: [id number] Diet Instructions: [id number] Regular ACTIVITY: [id number] Activity Restrictions: [id number] No Restrictions FOLLOW UP/APPOINTMENTS Follow-up Plan FOLLOW UP WITH YOUR PCP IN 1-2 WEEKS PARKER VEGA Feb 20, 2019 10:27
[2019-02-20 14:00] VITALS: BP 97/49; PULSE 63; RESP 19
--- NOTE | 2019-02-20 14:39 | CONS ---
Assessment/Plan Assessment/Plan Assessment/Plan (Recall) 23 F who presents for evaluation of headache, fevers, body aches and neck stiffness... On neurologic examination, she is mentating normally, w/o meningismus or focal signs..which is reassuring.. CSF was unremarkable.. Head CT is unrevealing. Recent BCxs were notable for e coli in 1/2 bottles...which raises suspicion for contamination... P: Continued medical management and supportive care per primary Will follow Consultation Date/Type/Reason Admit Date/Time Feb 19, 2019 at 04:34 Type of Consult Neurology Reason for Consultation headache fevers Requesting Provider: PARKER VEGA Date/Time of Note DATE: 02/20/19 TIME: 14:38 24 HR Interval Summary Free Text/Dictation Continues acute care Exam/Review of Systems Exam Vitals Vital Signs Date Temp Pulse Resp B/P (MAP) Pulse Ox O2 O2 Flow FiO2 Time Delivery Rate 02/20/19 98.8 63 19 97/49 (65) 99 14:00 02/19/19 Room Air 10:12 Intake and Output 02/19/19 02/19/19 02/20/19 1414:59 22:59 06:59 IntakeIntake Total 120 ml 1200 ml 1355 ml BalanceBalance 120 ml 1200 ml 1355 ml Results Result Diagram: 02/20/19 0529 02/20/19 0529 Results 24hrs Laboratory Tests Test 02/20/19 05:29 White Blood Count 6.4 Red Blood Count 4.01 L Hemoglobin 12.2 Hematocrit 37.3 Mean Corpuscular Volume 93.0 Mean Corpuscular Hemoglobin 30.4 Mean Corpuscular Hemoglobin Concent 32.7 Red Cell Distribution Width 12.7 Platelet Count 223 Mean Platelet Volume 10.9 H Immature Granulocytes % 1.300 H Neutrophils % Segmented Neutrophils % (Manual) 36 L Band Neutrophils % (Manual) 5 H Lymphocytes % Lymphocytes % (Manual) 37 Reactive Lymphocytes % (Manual) 7 H Monocytes % Monocytes % (Manual) 10 Eosinophils % Eosinophils % (Manual) 5 Basophils % Nucleated Red Blood Cells % 0.0 Immature Granulocytes # 0.080 H Neutrophils # Neutrophils # (Manual) 2.3 Band Neutrophils # 0.3 Lymphocytes (Manual) 2.3 Lymphocytes # Reactive Lymphocytes # 0.4 H Monocytes # Monocytes # (Manual) 0.6 Eosinophils # Basophils # Nucleated Red Blood Cells # Platelet Estimate NORMAL Poikilocytosis 2+ Spherocytes 1+ Ovalocytes 1+ Sodium Level 143 Potassium Level 3.9 Chloride Level 108 Carbon Dioxide Level 27 Anion Gap 8 Blood Urea Nitrogen 9 Creatinine 0.98 Est Glomerular Filtrat Rate mL/min > 60 Glucose Level 96 Calcium Level 9.0 Phosphorus Level 5.0 H Magnesium Level 1.9 Total Bilirubin 0.2 Direct Bilirubin 0.00 Indirect Bilirubin 0.2 Aspartate Amino Transf (AST/SGOT) 33 Alanine Aminotransferase (ALT/SGPT) 49 Alkaline Phosphatase 49 Total Protein 6.7 Albumin 3.5 Globulin 3.20 Albumin/Globulin Ratio 1.09 Medications Medication Current Medications Sodium Chloride 1,000 ml @ 125 mls/hr Q8H IV Last administered on 02/20/19at 01:43; Admin Dose 125 MLS/HR; Start 02/19/19 at 05:53 IV Flush (NS 3 ml) 3 ml PER PROTOCOL IV ; Start 02/19/19 at 06:00 Ondansetron HCl (Zofran Inj) 4 mg Q6H PRN IV NAUSEA/VOMITING Last administered on 02/19/19at 10:22; Admin Dose 4 MG; Start 02/19/19 at 06:00 Acetaminophen (Tylenol Tab) 650 mg Q6H PRN PO .PAIN 1-3 OR TEMP Last administered on 02/20/19at 08:13; Admin Dose 650 MG; Start 02/19/19 at 06:00 Albuterol/ Ipratropium (Duoneb) 3 ml Q2H RESP THERAPY PRN HHN SHORTNESS OF BREATH; Start 02/19/19 at 06:00 Vancomycin HCl (Vanco Iv Per Pharmacy) VANCOMYCIN PER PHARMACY PER PROTOCOL XX ; Start 02/19/19 at 06:00 Vancomycin HCl 250 ml @ 125 mls/hr Q12H IVPB Last administered on 02/20/19at 05:36; Admin Dose 125 MLS/HR; Start 02/19/19 at 17:30 Miscellaneous Information (*Rx Drug Level Order Reminder*) VANCOMYCIN TROUGH LEVEL 1630 ONCE XX ; Start 02/20/19 at 16:30; Stop 02/20/19 at 16:31 Ceftriaxone Sodium 50 ml @ 100 mls/hr Q12H IVPB Last administered on 02/20/19at 08:13; Admin Dose 100 MLS/HR; Start 02/19/19 at 21:00 JAMES SOSA Feb 20, 2019 14:39
--- NOTE | 2019-02-20 15:49 | CONS ---
Assessment/Plan Assessment/Plan Hospital Course (Demo Recall) Patient is alert and getting discharged now she is in no distress no fevers vital signs stable. She was admitted with high fevers so far all cultures negative CSF negative CT of the abdomen revealed left at the adnexal teratoma otherwise was unremarkable CT of the brain revealed no acute intracranial abnormality. Patient is clinically stable alert awake and oriented, okay discharge off antibiotics Consultation Date/Type/Reason Admit Date/Time Feb 19, 2019 at 04:34 Initial Consult Date Type of Consult id Requesting Provider: PARKER VEGA Date/Time of Note DATE: 02/20/19 TIME: 15:48 Exam/Review of Systems Exam Vitals Vital Signs Date Temp Pulse Resp B/P (MAP) Pulse Ox O2 O2 Flow FiO2 Time Delivery Rate 02/20/19 98.8 63 19 97/49 (65) 99 14:00 02/19/19 Room Air 10:12 Intake and Output 02/19/19 02/19/19 02/20/19 1515:00 23:00 07:00 IntakeIntake Total 120 ml 1200 ml 1355 ml BalanceBalance 120 ml 1200 ml 1355 ml Results Result Diagram: 02/20/19 0529 02/20/19 0529 Results 24hrs Laboratory Tests Test 02/20/19 05:29 White Blood Count 6.4 Red Blood Count 4.01 L Hemoglobin 12.2 Hematocrit 37.3 Mean Corpuscular Volume 93.0 Mean Corpuscular Hemoglobin 30.4 Mean Corpuscular Hemoglobin Concent 32.7 Red Cell Distribution Width 12.7 Platelet Count 223 Mean Platelet Volume 10.9 H Immature Granulocytes % 1.300 H Neutrophils % Segmented Neutrophils % (Manual) 36 L Band Neutrophils % (Manual) 5 H Lymphocytes % Lymphocytes % (Manual) 37 Reactive Lymphocytes % (Manual) 7 H Monocytes % Monocytes % (Manual) 10 Eosinophils % Eosinophils % (Manual) 5 Basophils % Nucleated Red Blood Cells % 0.0 Immature Granulocytes # 0.080 H Neutrophils # Neutrophils # (Manual) 2.3 Band Neutrophils # 0.3 Lymphocytes (Manual) 2.3 Lymphocytes # Reactive Lymphocytes # 0.4 H Monocytes # Monocytes # (Manual) 0.6 Eosinophils # Basophils # Nucleated Red Blood Cells # Platelet Estimate NORMAL Poikilocytosis 2+ Spherocytes 1+ Ovalocytes 1+ Sodium Level 143 Potassium Level 3.9 Chloride Level 108 Carbon Dioxide Level 27 Anion Gap 8 Blood Urea Nitrogen 9 Creatinine 0.98 Est Glomerular Filtrat Rate mL/min > 60 Glucose Level 96 Calcium Level 9.0 Phosphorus Level 5.0 H Magnesium Level 1.9 Total Bilirubin 0.2 Direct Bilirubin 0.00 Indirect Bilirubin 0.2 Aspartate Amino Transf (AST/SGOT) 33 Alanine Aminotransferase (ALT/SGPT) 49 Alkaline Phosphatase 49 Total Protein 6.7 Albumin 3.5 Globulin 3.20 Albumin/Globulin Ratio 1.09 Medications Medication Current Medications Sodium Chloride 1,000 ml @ 125 mls/hr Q8H IV Last administered on 02/20/19at 01:43; Admin Dose 125 MLS/HR; Start 02/19/19 at 05:53 IV Flush (NS 3 ml) 3 ml PER PROTOCOL IV ; Start 02/19/19 at 06:00 Ondansetron HCl (Zofran Inj) 4 mg Q6H PRN IV NAUSEA/VOMITING Last administered on 02/19/19at 10:22; Admin Dose 4 MG; Start 02/19/19 at 06:00 Acetaminophen (Tylenol Tab) 650 mg Q6H PRN PO .PAIN 1-3 OR TEMP Last administered on 02/20/19at 08:13; Admin Dose 650 MG; Start 02/19/19 at 06:00 Albuterol/ Ipratropium (Duoneb) 3 ml Q2H RESP THERAPY PRN HHN SHORTNESS OF BREATH; Start 02/19/19 at 06:00 Vancomycin HCl (Vanco Iv Per Pharmacy) VANCOMYCIN PER PHARMACY PER PROTOCOL XX ; Start 02/19/19 at 06:00 Vancomycin HCl 250 ml @ 125 mls/hr Q12H IVPB Last administered on 02/20/19at 05:36; Admin Dose 125 MLS/HR; Start 02/19/19 at 17:30 Miscellaneous Information (*Rx Drug Level Order Reminder*) VANCOMYCIN TROUGH LEVEL 1630 ONCE XX ; Start 02/20/19 at 16:30; Stop 02/20/19 at 16:31 Ceftriaxone Sodium 50 ml @ 100 mls/hr Q12H IVPB Last administered on 02/20/19at 08:13; Admin Dose 100 MLS/HR; Start 02/19/19 at 21:00 VERO RAMAN NP Feb 20, 2019 15:49
--- NOTE | 2019-02-20 17:59 | DS ---
Date/Time of Note Date/Time of Note DATE: 02/20/19 TIME: 17:56 Discharge Summary Admission/Discharge Info Admit Date/Time Feb 19, 2019 at 04:34 Discharge Date/Time Feb 20, 2019 at 15:46 Discharge Diagnosis 1. Headache and neck pain secondary to muscular pain-resolved -LP was negative for meningitis -Status post IV antibiotics -Neurology 90 consultations appreciated 2. Pyelonephritis with E. coli bacteremia: Diagnosed 4 days ago here at [facility] -UA, urine culture and blood culture are all now negative -Status post IV antibiotics -Complete Keflex course -ID consultation appreciated Patient Condition: Good Hospital Course Patient is a 23-year-old female with a recent diagnosis of pyelonephritis and UTI with urine and blood cultures positive for E. coli. Patient was discharged with Keflex and returned with headache and neck pain and was admitted for rule out meningitis. LP was done which was negative, repeat UA, urine culture blood cultures were all negative. Patient was seen by ID and neurology and was clear for DC. On day of discharge patient vitals, labs and physical exam are stable. Home Meds Active Scripts Cephalexin* (Keflex*) 500 Mg Capsule, 500 MG PO QID for 10 Days, CAP Prov:CY TORO MD 02/15/19 Acetaminophen* (Tylophen*) 500 Mg Capsule, 2 CAP PO Q8H PRN for PAIN AND OR ELEVATED TEMP, #20 CAP Prov:CY TORO MD 02/15/19 Ibuprofen* (Motrin*) 800 Mg Tab, 800 MG PO Q6H PRN for PAIN AND OR ELEVATED TEMP, #30 TAB Prov:CY TORO MD 02/15/19 Follow-up Plan FOLLOW UP WITH YOUR PCP IN 1-2 WEEKS Primary Care Provider Not On Staff Doctor Time spent on discharge: > 30 minutes PARKER VEGA Feb 20, 2019 17:58
== END 2019-02-20 15:46 | disposition home or self-care (01) | DRG 552 ==
LOC: E/R 21:40 → CANBEDREQ 02-19 02:14 → PP2 02-19 04:34
PROVIDERS: ADMIT Internal Medicine; ATTEND Internal Medicine
PROC: 009U3ZX Drainage of Spinal Canal, Percutaneous Approach, Diagnostic (ICD-10-PCS; principal; 2019-02-19)
PROC: B01BZZZ Fluoroscopy of Spinal Cord (ICD-10-PCS; 2019-02-19)
DX: M54.2 Cervicalgia (principal); N10 Acute pyelonephritis; R51 Headache; B96.20 Unspecified Escherichia coli [E. coli] as the cause of diseases classified elsewhere; M79.10 Myalgia, unspecified site
CPT/HCPCS: 36415; 70450; 71045; 74176; 80053; 81001; 82945; 83605; 83615; 83735; 84100; 84157; 84484; 85025; 85610; 85730; 86788; 86789; 87070; 87086; 87400; 89051; 93005; 96374; 96375; J0696; J1885; J1956; J2405; J3370; J7030

== ENCOUNTER 2019-02-22 21:10 | Emergency (ER) | payer OTHER ==
[~2019-02-22] VITALS: Ht 157.5 cm; Wt 59.6 kg
[2019-02-22 21:20] VITALS: BP 118/69; PULSE 66; RESP 18; Ht 157.5 cm; Wt 59.6 kg
[2019-02-22] MEDS ORDERED: ONDANSETRON (ODT) 4 MG TAB ODT STA (22:04)
[2019-02-22] MEDS ORDERED: KETOROLAC 30 MG INJ IM STA (22:04)
--- NOTE | 2019-02-22 22:23 | ERD ---
ER Documentation Chief Complaint Chief Complaint pressure headache started last Saturday,nausea started this AM HPI 23-year-old female presents with bitemporal headache for last 2 days. She has some nausea starting today as well. History significant for UTI 1 week ago and fevers. She had a positive blood culture. She had a headache and neck stiffness and had a lumbar puncture and was ruled out for meningitis. She was discharged home 2 days ago. Fever, neck stiffness, urinary complaints have resolved. Denies any rashes, cough, shortness of breath, abdominal pain, additional symptoms. Denies any visual changes or deficits. ROS All systems reviewed and are negative except as per history of present illness. Medications Home Meds Active Scripts Dotfaowewp-Caslqfexenblk-Msoqzbyz* (Fioricet*) 50-300-40 Mg Capsule, 1 CAP PO Q4H PRN for HEADACHE, #10 CAP Prov:WILD CABAN MD 02/22/19 Cephalexin* (Keflex*) 500 Mg Capsule, 500 MG PO QID for 10 Days, CAP Prov:CY TORO MD 02/15/19 Acetaminophen* (Tylophen*) 500 Mg Capsule, 2 CAP PO Q8H PRN for PAIN AND OR ELEVATED TEMP, #20 CAP Prov:CY TORO MD 02/15/19 Ibuprofen* (Motrin*) 800 Mg Tab, 800 MG PO Q6H PRN for PAIN AND OR ELEVATED TEMP, #30 TAB Prov:CY TORO MD 02/15/19 Allergies Allergies: Coded Allergies: No Known Allergy (Unverified , 02/19/19) PMhx/Soc History of Surgery: Yes (ANKLE SURGERY ,spinal tap last .) Anesthesia Reaction: No Hx Respiratory Disorders: No Hx Cardiac Disorders: No Hx Psychiatric Problems: No Hx Miscellaneous Medical Probl: No Hx Alcohol Use: No Hx Substance Use: No Hx Tobacco Use: No Smoking Status: Never smoker FmHx Family History: No diabetes, No coronary disease, No other Physical Exam Vitals Vital Signs Date Temp Pulse Resp B/P (MAP) Pulse Ox O2 O2 Flow FiO2 Time Delivery Rate 02/22/19 98.4 66 18 118/69 100 21:20 (85) Physical Exam Const: No acute distress. Well-appearing and smiling. Head: Atraumatic Eyes: Normal Conjunctiva ENT: Normal External Ears, Nose and Mouth. Neck: Full range of motion. No meningismus. Resp: Clear to auscultation bilaterally Cardio: Regular rate and rhythm, no murmurs Abd: Soft, non tender, non distended. Normal bowel sounds Skin: No petechiae or rashes Back: No midline or flank tenderness Ext: No cyanosis, or edema Neur: Awake and alert are negative Kernig's and presents with signs. No ap preciable focal neurologic deficits. Normal gait. Psych: Normal Mood and Affect Results 24 hrs Current Medications Medications Dose Sig/Carlito Start Time Status Last (Trade) Ordered Route PRN Stop Time Admin Dose Reason Admin Ketorolac 30 mg ONCE STAT 02/22/19 DC Tromethamine IM 22:04 (Toradol) 02/22/19 22:05 Ondansetron 8 mg ONCE STAT 02/22/19 DC 02/22/19 HCl (Zofran ODT 22:04 22:22 Odt) 02/22/19 22:05 Procedures/MDM Patient PResents with a bitemporal headache for the last 2 days. She has a history of UTI and is been ruled out recently for meningitis. Most of her symptoms are resolved except for her bitemporal headache. She is well- appearing. She may have a mild spinal headache. Patient declined IV fluids. We will treat with Toradol, Fioricet, Zofran instructions for rest, continue p.o. fluids, ibuprofen and antibiotics and return precautions for vomiting and/or additional symptoms. The patient was stable with no new complaints during the ER course. Clinically, there is no current evidence to suggest meningitis, sepsis, acute abdomen, pneumonia, stroke, acute coronary syndrome, pulmonary embolism, aortic dissection or any other emergent condition appearing to require further evaluation or hospitalization. Patient counseled regarding my diagnostic impression and care plan. Prior to discharge all questions answered. Pt agrees with treatment plan and understands strict return precautions. Pt is instructed to follow up with primary care provider within 24- 48 hours. Precautionary instructions provided including instructions to return to the ER if not improving or for any worsening or changing symptoms or concerns. Disclaimer: Inadvertent spelling and grammatical errors are likely due to EHR/dictation software use and do not reflect on the overall quality of patient care. Also, please note that the electronic time recorded on this note does not necessarily reflect the actual time of the patient encounter. Departure Diagnosis: Primary Impression: Headache Headache type: unspecified Headache chronicity pattern: unspecified pattern Intractability: not intractable Qualified Codes: R51 - Headache Additional Impression: Pyelonephritis Condition: Stable Patient Instructions: Self-Care for Headaches Referrals: DOCTOR,NOT ON STAFF (PCP) Additional Instructions: May be spinal headache which should continue to improve over the next few days. Recommend rest and fluids at home. Recheck for fevers, vomiting, worsening symptoms. WILD CABAN MD Feb 22, 2019 22:23
== END 2019-02-22 22:44 | disposition home or self-care (01) ==
LOC: FTE 21:10
DX: R51 Headache (principal); N12 Tubulo-interstitial nephritis, not specified as acute or chronic
CPT/HCPCS: 81025; 96372; J1885; Z7502; Z7610